=== PATIENT | male | born 1955 | race African-American/Black ===

== ENCOUNTER 2016-09-15 08:31 | Outpatient (CLI) | payer OTHER ==
[2016-09-15 09:28] LABS: eGFR (African) 49; eGFR (Non-African) 41
== END 2016-09-15 08:32 ==
LOC: LAB 08:31
PROVIDERS: ATTEND Family Medicine
DX: E11.9 Type 2 diabetes mellitus without complications (principal)
CPT/HCPCS: 36415; 80053; 80061; 83036

== ENCOUNTER 2016-09-23 14:56 | Outpatient (CLI) | payer OTHER | END 2016-09-23 14:57 | LOC: NEPHRO 14:56 | PROVIDERS: ATTEND Internal Medicine Nephrology | DX: E11.22 Type 2 diabetes mellitus with diabetic chronic kidney disease (principal); I12.9 Hypertensive chronic kidney disease with stage 1 through stage 4 chronic kidney disease, or unspecified chronic kidney disease; N18.3 Chronic kidney disease, stage 3 (moderate) | CPT/HCPCS: 99213 ==

== ENCOUNTER 2016-11-24 08:52 | Day surgery (SDC) | payer OTHER ==
--- NOTE | 2016-11-24 13:17 | GI Report ---
REFERRING PHYSICIAN: Dr. Ralph Martin MANAGER UROLOGY: Lopez Dover MD PROCEDURE MEDICATION: Propofol as per anesthesia. INDICATIONS: This 61-year-old man is referred for a screening. He did have a colonoscopy 10 years ago. He denies changes in his stools or blood in his stool. He is 6 foot tall and weighs 400 pounds and carries that weight centrally. He does have sleep apnea. He is a diabetic and is hypertensive and has hyperlipidemia consistent with metabolic syndrome. PROCEDURE PERFORMED: Colonoscopy with polypectomy. PROCEDURE: An Olympus video colonoscope was advanced into the rectum. An atonic redundant colon and it took some maneuvering and nurse compression to finally reach the base of the cecum. The appendiceal orifice and ileocecal valve appeared normal. On slow withdrawal, the cecum, ascending colon, and transverse colon with redundancy, but no obvious intraluminal lesions noted. In the descending colon at 50 cm, the patient had a 4 mm sessile polyp removed with electrocautery. No additional lesions are noted in the sigmoid. Retroflexion of the rectum showed some hemorrhoids. Patient tolerated the procedure well. FINDINGS: 1. Colon polyp removed at 50 cm. 2. Atonic redundant colon. RECOMMENDATIONS: 1. Increase fiber in the diet. 2. Decrease calorie intake. Weight loss would be markedly beneficial for his metabolic syndrome. 3. Consider re-looking at his colon in 5 years pending the pathology of the polyp. cc: Dr. Ralph LANG
== END 2016-11-24 08:53 ==
LOC: OPSURG 08:52
PROVIDERS: ATTEND Internal Medicine Gastroenterology
DX: Z12.11 Encounter for screening for malignant neoplasm of colon (principal); D12.4 Benign neoplasm of descending colon
CPT/HCPCS: 88305; J2001; J2704; J7120; 45385; S1016

== ENCOUNTER 2017-03-16 08:58 | Outpatient (CLI) | payer OTHER ==
[2017-03-16 09:19] LABS: BASOPHILS % 0.4 (0.0-1.5); EOSINOPHILS % 1.6 % (0.0-6.8); MEAN CORPUSCULAR HEMOGLOBIN 26.6 pg (28.0-34.0); MEAN CORPUSCULAR VOLUME 83.8 fl (80.0-100.0); MONOCYTES % 4.1 % (0.0-11.0); NEUTROPHILS # 5.1 # k/uL (1.4-7.7)
[2017-03-16 09:48] LABS: eGFR (African) 43; eGFR (Non-African) 36
== END 2017-03-16 09:00 ==
LOC: LAB 08:58
PROVIDERS: ATTEND Internal Medicine Nephrology
DX: N18.3 Chronic kidney disease, stage 3 (moderate) (principal)
CPT/HCPCS: 36415; 80053; 83036; 84100; 84550; 85025

== ENCOUNTER 2017-03-24 15:03 | Outpatient (CLI) | payer OTHER | END 2017-03-24 15:04 | LOC: NEPHRO 15:03 | PROVIDERS: ATTEND Internal Medicine Nephrology | DX: N18.9 Chronic kidney disease, unspecified (principal); I10 Essential (primary) hypertension; E11.9 Type 2 diabetes mellitus without complications | CPT/HCPCS: 99213 ==

== ENCOUNTER 2017-04-15 17:13 | Outpatient (CLI) | payer OTHER | END 2017-04-15 17:14 | LOC: RT 17:13 | PROVIDERS: ATTEND Family Medicine | DX: R00.0 Tachycardia, unspecified (principal) ==

== ENCOUNTER 2017-09-14 13:49 | Outpatient (CLI) | payer OTHER ==
[2017-09-14 14:07] LABS: BASOPHILS % 0.3 (0.0-1.5); EOSINOPHILS % 1.6 % (0.0-6.8); MEAN CORPUSCULAR HEMOGLOBIN 26.6 pg (28.0-34.0); MEAN CORPUSCULAR VOLUME 86.1 fl (80.0-100.0); MONOCYTES % 3.1 % (0.0-11.0); NEUTROPHILS # 5.3 # k/uL (1.4-7.7)
[2017-09-14 14:10] LABS: APPEARANCE,URINE Clear (CLEAR); COLOR,URINE Yellow (YELLOW); OCCULT BLOOD,URINE Negative (NEGATIVE); PH URINE 5.5 (5.0 - 8.0); UROBILINOGEN URINE 0.2 Eu (0.2-1.0)
[2017-09-14 14:29] LABS: eGFR (African) 37; eGFR (Non-African) 31
[2017-09-15 02:38] LABS: PROTEIN mg/dL 5 mg/dL
== END 2017-09-14 13:50 ==
LOC: LAB 13:49
PROVIDERS: ATTEND Internal Medicine Nephrology
DX: N18.9 Chronic kidney disease, unspecified (principal); I10 Essential (primary) hypertension; E11.9 Type 2 diabetes mellitus without complications
CPT/HCPCS: 36415; 80053; 81002; 82570; 83970; 84156; 85025

== ENCOUNTER 2017-09-22 13:46 | Outpatient (CLI) | payer OTHER | END 2017-09-22 13:48 | LOC: NEPHRO 13:46 | PROVIDERS: ATTEND Internal Medicine Nephrology | DX: I10 Essential (primary) hypertension (principal); N18.9 Chronic kidney disease, unspecified; E11.9 Type 2 diabetes mellitus without complications; E21.3 Hyperparathyroidism, unspecified | CPT/HCPCS: 99213 ==

== ENCOUNTER 2017-10-19 09:45 | Outpatient (CLI) | payer OTHER ==
[2017-10-19 10:39] LABS: eGFR (African) 37; eGFR (Non-African) 31
== END 2017-10-19 09:46 ==
LOC: LAB 09:45
PROVIDERS: ATTEND Family Medicine
DX: E11.9 Type 2 diabetes mellitus without complications (principal); E78.5 Hyperlipidemia, unspecified; I10 Essential (primary) hypertension; E21.3 Hyperparathyroidism, unspecified; N18.9 Chronic kidney disease, unspecified
CPT/HCPCS: 36415; 80053; 80061; 83036; 83970

== ENCOUNTER 2017-11-06 14:08 | Outpatient (CLI) | payer OTHER | END 2017-11-06 14:10 | LOC: POD 14:08 | PROVIDERS: ATTEND Podiatrist | DX: E11.42 Type 2 diabetes mellitus with diabetic polyneuropathy (principal); L84 Corns and callosities; L60.3 Nail dystrophy | CPT/HCPCS: 99213 ==

== ENCOUNTER 2018-02-05 13:56 | Outpatient (CLI) | payer OTHER | END 2018-02-05 14:00 | LOC: POD 13:56 | PROVIDERS: ATTEND Podiatrist | DX: E11.42 Type 2 diabetes mellitus with diabetic polyneuropathy (principal); L84 Corns and callosities; L60.3 Nail dystrophy; B35.1 Tinea unguium; M79.674 Pain in right toe(s); M79.675 Pain in left toe(s) | CPT/HCPCS: 11721; 99213 ==

== ENCOUNTER 2018-03-16 08:23 | Outpatient (CLI) | payer MEDICARE, OTHER ==
[2018-03-16 09:24] LABS: BASOPHILS % 0.4 (0.0-1.5); EOSINOPHILS % 1.3 % (0.0-6.8); MEAN CORPUSCULAR HEMOGLOBIN 26.5 pg (28.0-34.0); MONOCYTES % 4.4 % (0.0-11.0); NEUTROPHILS # 4.1 # k/uL (1.4-7.7)
[2018-03-16 10:00] LABS: eGFR (Non-African) 36
[2018-03-16 11:14] LABS: APPEARANCE,URINE CLEAR (CLEAR); COLOR,URINE YELLOW (YELLOW); OCCULT BLOOD,URINE NEGATIVE (NEGATIVE); UROBILINOGEN URINE 0.2 Eu (0.2-1.0)
[2018-03-17 09:21] LABS: PROTEIN mg/dL 5 mg/dL
== END 2018-03-16 08:24 ==
LOC: LAB 08:23
PROVIDERS: ATTEND Internal Medicine Nephrology
DX: N18.3 Chronic kidney disease, stage 3 (moderate) (principal); E11.21 Type 2 diabetes mellitus with diabetic nephropathy
CPT/HCPCS: 36415; 80053; 80061; 81002; 83036; 83970; 84100; 85025

== ENCOUNTER 2018-03-23 14:19 | Outpatient (CLI) | payer MEDICARE, OTHER | END 2018-03-23 14:20 | LOC: NEPHRO 14:19 | PROVIDERS: ATTEND Internal Medicine Nephrology | DX: I12.9 Hypertensive chronic kidney disease with stage 1 through stage 4 chronic kidney disease, or unspecified chronic kidney disease (principal); E11.9 Type 2 diabetes mellitus without complications; E21.3 Hyperparathyroidism, unspecified | CPT/HCPCS: G0463 ==

== ENCOUNTER 2018-09-14 13:44 | Outpatient (CLI) | payer OTHER | END 2018-09-14 13:46 | LOC: NEPHRO 13:44 | PROVIDERS: ATTEND Internal Medicine Nephrology | DX: I12.9 Hypertensive chronic kidney disease with stage 1 through stage 4 chronic kidney disease, or unspecified chronic kidney disease (principal); E11.22 Type 2 diabetes mellitus with diabetic chronic kidney disease; N18.3 Chronic kidney disease, stage 3 (moderate); E66.01 Morbid (severe) obesity due to excess calories | CPT/HCPCS: G0463 ==

== ENCOUNTER 2018-09-17 09:55 | Outpatient (CLI) | payer OTHER ==
[2018-09-17 10:20] LABS: MEAN CORPUSCULAR HEMOGLOBIN 26.3 pg (28.0-34.0)
[2018-09-17 10:21] LABS: BASOPHILS % 0.6 (0.0-1.5); EOSINOPHILS % 1.5 % (0.0-6.8); MONOCYTES % 4.1 % (0.0-11.0); NEUTROPHILS # 5.8 # k/uL (1.4-7.7)
[2018-09-17 11:01] LABS: eGFR (Non-African) 34
[2018-09-17 11:03] LABS: APPEARANCE,URINE CLEAR (CLEAR); COLOR,URINE YELLOW (YELLOW); OCCULT BLOOD,URINE NEGATIVE (NEGATIVE); PH URINE 5.5 (5.0 - 8.0); UROBILINOGEN URINE 0.2 Eu (0.2-1.0)
== END 2018-09-17 10:05 ==
LOC: LAB 09:55
PROVIDERS: ATTEND Internal Medicine Nephrology
DX: I12.9 Hypertensive chronic kidney disease with stage 1 through stage 4 chronic kidney disease, or unspecified chronic kidney disease (principal); N18.9 Chronic kidney disease, unspecified; E11.9 Type 2 diabetes mellitus without complications; N25.81 Secondary hyperparathyroidism of renal origin
CPT/HCPCS: 36415; 80053; 81002; 83036; 84100; 85025